=== PATIENT | male | born 1965 | race Caucasian/White ===

== ENCOUNTER → 2024-11-27 | Outpatient (CLI) | payer MEDICARE, MEDICAID, SELFPAY ==
[2024-11-27 08:59] LABS: Basophils # (Auto) 0.0 Thou/mm3 (0.0-0.2); Basophils % (Auto) 0 % (0-2.5); Eosinophils # (Auto) 0.3 Thou/mm3 (0.0-0.5); Eosinophils % (Auto) 4 % (0-10); Hematocrit 39.0 % (41.0-53.0); Hemoglobin 12.1 g/dL (13.5-16.0); Immature Granulocytes Auto 0.07 Thou/mm3 (0.00-0.00); Lymphocytes # (Auto) 1.8 Thou/mm3 (1.0-4.8); Lymphocytes % (Auto) 24 % (10-50); Mean Corpuscular HGB Conc 31.0 g/dl (31.0-37.0); Mean Corpuscular Hemoglobin 32.1 pg (25.0-35.0); Mean Corpuscular Volume 103 fL (80-100); Monocytes # (Auto) 0.9 Thou/mm3 (0.0-0.8); Monocytes % (Auto) 12 % (0-12); Neutrophils # (Auto) 4.2 Thou/mm3 (1.8-7.7); Neutrophils % (Auto) 59 % (37-80); Nucleated Red Blood Cell # 0.00 Thou/mm3 (0.00-0.00); Nucleated Red Blood Cell % 0 /100 WBC (0); Platelet Count 194 Thou/mm3 (140-440); RDW Standard Deviation 49.1 fL (35.1-43.9); Red Blood Count 3.77 Miln/mm3 (4.50-5.90); White Blood Count 7.2 Thou/mm3 (3.8-10.6)
[2024-11-27 09:08] LABS: Ferritin 183 ng/mL (10.5-307.3)
[2024-11-27 09:10] LABS: Collection Type, Urine Clean Catch; WBC,Urine 0 /hpf (0-5)
[2024-11-27 09:12] LABS: Folate 19.52 ng/mL (>5.38); Vitamin B12 950 pg/mL (211-911)
[2024-11-27 09:16] LABS: B-Type Natriuretic Peptide < 20 pg/mL (0-100)
[2024-11-27 09:17] LABS: Alanine Aminotransferase 12 U/L (10-49); Albumin, Serum 3.7 gm/dL (3.4-4.8); Albumin/Globulin Ratio 1.4 (1.2-2.2); Alkaline Phosphatase 68 U/L (46-116); Anion Gap 8 (7-16); Aspartate Amino Transferase 19 U/L (0-34); BUN/Creatinine Ratio 12 Ratio (12-20); Bilirubin,Total 0.3 mg/dL (0.3-1.2); Blood Urea Nitrogen 16 mg/dL (9-23); Calcium 8.6 mg/dL (8.3-10.6); Calcium (Corrected) 8.8 mg/dL (8.5-10.1); Carbon Dioxide 29.3 mMol/L (20.0-31.0); Cardiac Risk Estimate 2.4 RATIO (4.0-6.7); Chloride 104 mMol/L (98-107); Cholesterol 140 mg/dL (132-200); Creatinine (Component) 1.3 mg/dL (0.6-1.3); Free T4 (Free Thyroxine) 0.94 ng/dL (0.89-1.76); Globulin 2.7 gm/dL (2.3-3.5); Glucose 87 mg/dL (74-106); HDL Cholesterol 59 mg/dL (40-60); LDL Cholesterol,Calculated 69 mg/dL (0-130); Osmolality,Calculated 281 (275-295); Potassium 4.2 mMol/L (3.4-5.1); Sodium 141 mMol/L (136-145); Thyroid Stimulating Hormone 3.36 uIU/mL (0.55-4.78); Total Protein 6.4 gm/dL (5.7-8.2); Triglycerides 62 mg/dL (30-150); eGFR > 60 See Note
[2024-11-27 09:39] LABS: Bilirubin,Urine Negative (Negative); Blood,Urine Negative (Negative); Clarity,Urine Clear (Clear/Hazy); Color,Urine Colorless (Lt Yel-Yel); Culture Indicated,Urine Not Indicated; Glucose, Urine Negative (Negative); Ketones,Urine Negative (Negative); Leukocyte Esterase,Urine Negative (Negative); Nitrite,Urine Negative (Negative); PH,Urine 6.5 (5.0-7.0); Protein,Urine Negative (Neg - Trace); RBC,Urine < 1 /hpf (0-3); Specific Gravity,Urine 1.005 (1.001-1.035); Squamous Epithelial Cell,Urine < 1 /hpf (0-5); Urobilinogen,Urine Negative mg/dL (0.0-1.0)
[2024-12-01 17:52] LABS: PSA, Free 0.93 ng/mL; PSA, Total 3.9 ng/mL (< OR = 4.0)
[2024-12-02 06:54] LABS: PSA, % Free 24 % (calc) (>25); T3,Total* 77 ng/dL (76-181)
== END | disposition home or self-care (01) ==
PROVIDERS: PCP Family Medicine; Referring Provider Nurse Practitioner; Visit Provider Nurse Practitioner
DX: N18.30 Chronic kidney disease, stage 3 unspecified (principal); D63.1 Anemia in chronic kidney disease; R60.0 Localized edema; R79.89 Other specified abnormal findings of blood chemistry; N39.44 Nocturnal enuresis; E03.9 Hypothyroidism, unspecified; E78.5 Hyperlipidemia, unspecified
CPT/HCPCS: 36415; 80053; 80061; 81001; 82607; 82728; 82746; 83880; 84153; 84154; 84439; 84443; 84480; 85025

== ENCOUNTER 2025-01-05 07:45 | Day surgery (SDC) | payer MEDICARE, MEDICAID, SELFPAY ==
[2025-01-02 11:53] VITALS: BMI 26.3
--- NOTE | 2025-01-05 09:15 | EKG_ITS ---
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
[2025-01-05 09:17] VITALS: BMI 26.3
[2025-01-05 09:38] VITALS: BP 118/78; PULSE 72; RESP 20; TEMP 36.6; O2SAT 99
[2025-01-05 10:13] LABS: Alanine Aminotransferase 10 U/L (10-49); Albumin, Serum 3.8 gm/dL (3.4-4.8); Albumin/Globulin Ratio 1.5 (1.2-2.2); Alkaline Phosphatase 76 U/L (46-116); Anion Gap 8 (7-16); Aspartate Amino Transferase 20 U/L (0-34); BUN/Creatinine Ratio 7 Ratio (12-20); Bilirubin,Total 0.4 mg/dL (0.3-1.2); Blood Urea Nitrogen 8 mg/dL (9-23); Calcium 9.4 mg/dL (8.3-10.6); Calcium (Corrected) 9.6 mg/dL (8.5-10.1); Carbon Dioxide 30.9 mMol/L (20.0-31.0); Chloride 107 mMol/L (98-107); Creatinine (Component) 1.2 mg/dL (0.6-1.3); Estimated Creatinine Clearance 62.5 mL/min (>60); Globulin 2.5 gm/dL (2.3-3.5); Glucose 83 mg/dL (74-106); Osmolality,Calculated 287 (275-295); Potassium 3.2 mMol/L (3.4-5.1); Sodium 146 mMol/L (136-145); Total Protein 6.3 gm/dL (5.7-8.2); eGFR > 60 See Note
[2025-01-05] MEDS: MIDAZOLAM INJ 1 MG/ML VIAL 2 ML (ASD USE ONLY) 2 MG IVP (11:46)
[2025-01-05 12:08] VITALS: BP 97/73; PULSE 71; PULSE 72; RESP 20; TEMP 36.6; O2SAT 99
[2025-01-05] MEDS: RINGERS LACTATED 1000 ML 1,000 ML 20 ML IV (12:08)
[2025-01-05 12:36] VITALS: BP 120/84; PULSE 69; RESP 12; TEMP 36.2; O2SAT 95
--- NOTE | 2025-01-05 12:36 | SUR.PHASEII ---
1236 patient arrived to recovery resting comfortably in [facility], on oxygen 5L via nasal cannula, sleeping and able to arouse with verbal prompting then drifts back to sleep, breathing unlabored, vital signs stable, report received from Garima APONTE and Dr. Beaulieu
--- NOTE | 2025-01-05 12:41 | SUR.PHASEII ---
RESUME CARE FROM ACACIA Tracey RN. PT MORE AWAKE. CARE PROVIDER, JENNIFER AT [facility].
--- NOTE | 2025-01-05 12:41 | SUR.PHASEII ---
1241 Report given to Frankie APONTE to assume care of patient
[2025-01-05 12:46] VITALS: BP 116/85; PULSE 66; RESP 13; O2SAT 95
[2025-01-05 12:56] VITALS: BP 108/81; PULSE 72; RESP 19; O2SAT 99
[2025-01-05 13:06] VITALS: BP 117/87; PULSE 74; RESP 18; O2SAT 100
--- NOTE | 2025-01-05 13:08 | SUR.PHASEII ---
PT D/C HOME WITH CARE PROVIDER, JENNIFER. ALL QUESTIONS WERE ANSWERED.
--- NOTE | 2025-01-05 13:19 | SUR.PHASEII ---
PTE MORE AWAKE AND STARTING TO SCREAM AND NOT ABLE TO SIT STILL IN THE GURNEY.
== END 2025-01-05 13:08 | disposition home or self-care (01) ==
PROVIDERS: Anesthesiology; PCP Nurse Practitioner; Referring Provider Specialist; Visit Provider Specialist
PROC: 0DJD8ZZ Inspection of Lower Intestinal Tract, Via Natural or Artificial Opening Endoscopic (ICD-10-PCS; CPT 45378; principal; 2025-01-05 09:15)
DX: R19.4 Change in bowel habit (principal); R10.30 Lower abdominal pain, unspecified; K64.1 Second degree hemorrhoids; K57.30 Diverticulosis of large intestine without perforation or abscess without bleeding; E03.9 Hypothyroidism, unspecified; F99 Mental disorder, not otherwise specified; Z01.810 Encounter for preprocedural cardiovascular examination; D64.9 Anemia, unspecified
CPT/HCPCS: 45378; 36415; 80053; 93005; A4649; J2250; J7120

== ENCOUNTER 2025-01-14 11:39 | Emergency (ER) | payer MEDICARE, MEDICAID, SELFPAY ==
[2025-01-14 11:40] VITALS: BMI 22.8
[2025-01-14 11:56] VITALS: BP 166/76; PULSE 91; RESP 20; TEMP 36.6; O2SAT 100; BMI 22.8
--- NOTE | 2025-01-14 12:09 | XR_ITS ---
Examination: Foot, left 3 views, Technique: AP, oblique, lateral views foot, 3 views Date and time of exam: January 14, 2025, 1217 hrs. Indications: Redness swelling and pain involving the foot beginning 3 days ago. Findings: No acute fracture. No cortical bone destruction. No opaque foreign body. Moderate plantar posterior bony calcaneal spurs. Impression: No opaque foreign body.
--- NOTE | 2025-01-14 13:30 | PD.EDANKLE ---
Lower Extremity Injury RME/HPI General Chief Complaint: Ankle/Foot Injury Stated Complaint: L) FOOT INJURY; DD Time Seen by Provider: 01/14/25 12:09 Arrival date/time: 01/14/25 11:39 59-year-old male developmental and multiple medical disorders presents to the emergency department today with caregiver reports they went to the clinic today and was referred here for evaluation of a sore on the patient's foot. Per the caregiver that has been there for some time patient was sent here to rule out foreign body Limitations: no limitations Related Data Home Medications ?Medication ?Instructions ?Recorded ?Confirmed clonazepam 0.5 mg tablet 0.25 mg PO HS 02/11/20 01/05/25 divalproex 500 mg tablet,delayed 500 mg PO BID 02/11/20 01/05/25 release docusate sodium 250 mg capsule 250 mg PO BID 02/11/20 01/05/25 ferrous sulfate 325 mg (65 mg 325 mg PO QDAY 02/11/20 01/05/25 iron) tablet lithium carbonate 300 mg capsule 900 mg PO QPM 02/11/20 01/05/25 loratadine 10 mg capsule 10 mg PO QDAY 02/11/20 01/05/25 olanzapine 20 mg tablet 20 mg PO QPM 02/11/20 01/05/25 propranolol 10 mg tablet 10 mg PO QPM 02/11/20 01/05/25 quetiapine 50 mg tablet 50 mg PO QDAY 02/11/20 01/05/25 furosemide 40 mg tablet (Lasix) 40 mg PO BID 08/18/21 01/05/25 Allergies Allergy/AdvReac Type Severity Reaction Status Date / Time No Known Allergies Allergy Verified 01/14/25 11:43 Review of Systems Review of Systems Systems Reviewed: All systems reviewed, normal except as documented Constitutional Constitutional: Reports system reviewed and no additional complaints, except as documented, Denies fatigue, Denies fever(s) and Denies headache(s) Eyes Eyes: Reports system reviewed and no additional complaints, except as documented ENT Ears, Nose, Mouth, and Throat: Reports system reviewed and no additional complaints, except as documented, Denies dizziness and Denies headache(s) Cardiovascular Cardiovascular: Reports system reviewed and no additional complaints, except as documented, Denies chest pain, Denies dyspnea and Denies dyspnea on exertion Respiratory Respiratory: Reports system reviewed and no additional complaints, except as documented, Denies chest congestion, Denies cough, Denies dyspnea and Denies dyspnea on exertion Gastrointestinal Gastrointestinal: Reports system reviewed and no additional complaints, except as documented, Denies abdominal pain, Denies nausea and Denies vomiting Musculoskeletal Musculoskeletal: Reports system reviewed and no additional complaints, except as documented, Denies abnormal gait, Denies numbness, Denies stiffness and Denies tingling Integumentary/Breasts Skin/Breast: Reports system reviewed and no additional complaints, except as documented, Denies rash, Denies wounds and Reports other (Small skin sore plantar aspect left foot) Neurologic Neurologic: Reports system reviewed and no additional complaints, except as documented, Denies abnormal gait, Denies dizziness, Denies headache(s), Denies numbness and Denies tingling Psychiatric Psychiatric: Reports system reviewed and no additional complaints, except as documented and Denies anxiety Endocrine Endocrine: Denies fatigue Past Medical History Past Medical History NEUROLOGIC: Positive Seizures; Negative Neurological Disorders CARDIAC: Positive Hypertension; Negative Cardiac Disorders or Congestive Heart Failure RESPIRATORY: Negative Chronic Obstructive Pulmonary Disease (COPD) or Asthma GASTROINTESTINAL: Positive Gastrointestinal Disorders (constipation) GENITOURINARY: Positive Genitourinary Disorders and Benign Prostatic Hyperplasia; Negative Renal Disease MUSCULOSKELETAL: Positive Musculoskeletal Disorders, Arthritis, Rheumatoid Arthritis and Osteoporosis ENDOCRINE: Negative Endocrine Disorders, Diabetes Mellitus Type 1 or Diabetes Mellitus Type 2 HEMATOLOGIC: Positive Blood Disorders and Anemia; Negative Sickle Cell Disease PSYCHO/SOCIAL: Positive Schizophrenia, Bipolar Disorder, Depression, Anxiety and Behavior Problems OTHER HISTORY: Positive Autoimmune Disease (lupus) and Developmental Delay; Negative Shingles, Blood Transfusions, Blood Transfusion Reaction, Anesthesia Reactions, Chicken Pox, Measles, Mumps or Cancer Social History SMOKING STATUS: Never smoker SUBSTANCE USE: does not use ED Exam General Limitations: Present no limitations General appearance: Present alert and in no apparent distress Head Head exam: Present atraumatic Eye Eye exam: Present normal appearance, PERRL and EOMI ENT ENT exam: Present normal exam, normal oropharynx and mucous membranes moist Neck Neck exam: Present normal inspection, full ROM and trachea midline Chest Chest inspection: Present normal inspection and symmetric chest wall rise Respiratory Respiratory exam: Present normal lung sounds bilaterally Cardiovascular Cardiovascular exam: Present regular rate, normal rhythm and normal heart sounds Abdominal Exam Abdominal exam: Present soft and normal bowel sounds Extremities Exam Extremities exam: Present full ROM, tenderness, normal capillary refill and other (Small skin sore plantar aspect left foot) Back Exam Back exam: Present normal inspection and full ROM Neurological Exam Neurological exam: Present alert, oriented X3 and CN II-XII intact Psychiatric Psychiatric exam: Present normal affect and normal mood Skin Skin exam: Present warm, dry, intact and normal color Course Quality Measures none Orders Category Date Time Status XR foot comp LT min 3V Stat Exams 01/14/25 12:09 Completed Vital Signs Vital signs: Vital Signs Temperature 97.9 F 01/14/25 11:56 Pulse Rate 91 01/14/25 11:56 Respiratory Rate 20 01/14/25 11:56 Blood Pressure 166/76 H 01/14/25 11:56 Pulse Oximetry (%) 100 01/14/25 11:56 Oxygen Delivery Method Room Air 01/14/25 11:56 O2 saturation 100% on room air within normal limits Extremity Injury, Lower MDM Narrative MDM Narrative:: 59-year-old male developmental and multiple medical disorders presents to the emergency department today with caregiver reports they went to the clinic today and was referred here for evaluation of a sore on the patient's foot. Per the caregiver that has been there for some time patient was sent here to rule out foreign body On exam there is no evidence of infection On exam patient does have a skin sore to the plantar aspect of the left foot no evidence of foreign body no surrounding erythema I do not believe this is infectious in nature there is no foreign body noted on x-ray Per caregiver patient has a referral to go see podiatry Patient discharged home no stress of a primary care doctor next 24 to 48 hours worsening symptoms return immediate Patient data External records reviewed:: [facility] previous records 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 (list below): No Diagnosis Extremity Injury, Lower Differential Diagnosis: other Most likely diagnosis given after review of the tests above:: Foreign body left foot, skin sore, wart Admission Indicated Admission indicated?: not indicated Explain why admission is indicated or not indicated:: No criteria Admission Request Was there a request for admission?: No Disposition Plan Disposition Plan: Discharge Discharge Attestation Discharge Attestation: The patient and all family members were given an opportunity to ask questions and understood the discharge instructions. Discharge instructions specifically effects, indications for sooner follow up or return to the emergency department, and the expected course of current diagnosis. Patient condition: Stable Discharge Plan Plan Patient Disposition: HOME (Self Care) Discharge Disposition comment: Stable Prescriptions/Referrals Prescriptions/Med Rec: No Action furosemide [Lasix] 40 mg tablet 40 mg PO BID clonazepam 0.5 mg Tablet 0.25 mg PO HS divalproex 500 mg Tablet,Delayed Release (Dr/Ec) 500 mg PO BID propranolol 10 mg Tablet 10 mg PO QPM lithium carbonate 300 mg Capsule 900 mg PO QPM ferrous sulfate 325 mg (65 mg iron) Tablet 325 mg PO QDAY docusate sodium 250 mg Capsule 250 mg PO BID olanzapine 20 mg Tablet 20 mg PO QPM quetiapine 50 mg Tablet 50 mg PO QDAY loratadine 10 mg Capsule 10 mg PO QDAY Problem List Clinical Impression: Skin sore Patient/Caregiver Discharge Instructions Additional Instructions: Please follow up with your primary care doctor in the next 24-48hrs for any worsening symptoms return here immediately Print Language: [place] Stand Alone Forms: Yuki Award Info., Patient Portal Info Letter PA/RADHA Supervising Physician LOUIS/RADHA Supervising Physician: dr floyd
== END 2025-01-14 13:49 | disposition home or self-care (01) ==
LOC: SERX 13:16
PROVIDERS: Emergency Provider Emergency Medicine; PCP Nurse Practitioner
DX: L98.9 Disorder of the skin and subcutaneous tissue, unspecified (principal)
CPT/HCPCS: 73630; 99283